=== PATIENT | female | born 1985 | race American Indian/Alaskan Native ===

== ENCOUNTER 2019-03-08 19:45 | Emergency (ER) | payer BC ==
[2019-03-08] MEDS ORDERED: AMOXICILLIN/K CLAV 875/125MG TAB PO STA (20:40)
[2019-03-08] MEDS ORDERED: oxyCODONE /ACETAMINOPHEN 5-325MG TAB PO STA (20:40)
[2019-03-08] MEDS ORDERED: TETANUS,DIPH,PERTUSS(ACELL) VACCINE 0.5 ML SYRINGE IM ONE (20:40)
--- NOTE | 2019-03-08 20:40 | Emergency Department Report ---
Blank Doc - Documentation Documentation: 33 y/o female s/p dog bite to right lower leg by stray dog. worried about rabi es. Dog was not located but animal control was dispatched T. his initial assessment/diagnostic orders/clinical plan/treatment(s) is/are subject to change based on patient's health status, clinical progression and re- assessment by fellow clinical providers in the ED. Further treatment and workup at subsequent clinical providers discretion. Patient/guardians urged not to elope from the ED as their condition may be serious if not clinically assessed and managed. Initial orders include: Tetanus, antibotics, tetanus, clean wound
--- NOTE | 2019-03-08 21:42 | XRay Report ---
LEFT TIBIA-FIBULA 2 VIEW(S) INDICATION / CLINICAL INFORMATION: dog bite. leg pain COMPARISON: None available. FINDINGS: BONES / JOINT(S): No acute fracture or subluxation. No significant arthritis. SOFT TISSUES: Soft tissue irregularity of the posterior medial left calf with several foci of soft ti ssue gas. No radiopaque foreign body. Several small calcified phleboliths in the lower anterior hassan. ADDITIONAL FINDINGS: None. Signer Name: Joseph Juarez MD Signed: 03/08/2019 9:37 PM Workstation Name: [id number]
[2019-03-08] MEDS ORDERED: SODIUM CHLORIDE IRRI 500 ML 500 ML IR ONE (21:52)
--- NOTE | 2019-03-08 23:05 | Emergency Department Report ---
ED Animal Bite HPI - General Chief Complaint: Animal Bite Stated Complaint: DOG BITE/PUNCTURE/LAC Time Seen by Provider: 03/08/19 20:37 Source: patient Mode of arrival: Ambulatory Limitations: No Limitations - History of Present Illness Initial Comments: Reports dog bite today onto right calf at approximately 1700. Denies other injuries. Denies drugs/alcohol. Complaint: animal bite -: hour(s) Right: Leg (right calf) Animal: dog Description: unknown animal Mechanism: bite Pain Description: sharp Severity scale (0 -10): 3 Context: unprovoked Associated Symptoms: none - Related Data Patient Tetanus UTD: No Previous Rx's Medication Instructions Recorded Last Taken Type Amoxicillin/Potassium Clav 1 each PO BID #20 tablet 03/08/19 Unknown Rx [Augmentin 875-125 Tablet] Ibuprofen [Motrin 600 MG tab] 600 mg PO Q6H PRN #24 tablet 03/08/19 Unknown Rx Allergies Allergy/AdvReac Type Severity Reaction Status Date / Time No Known Allergies Allergy Verified 03/08/19 22:16 ED Review of Systems ROS: Stated complaint: DOG BITE/PUNCTURE/LAC Other details as noted in HPI Other: GENERAL: No weight change, fatigue, fever, chills, or night sweats SKIN: No changes in skin or hair, no itching, no rashes, no jaundice HEAD: No trauma, headache, or visual changes EYES: No blurriness, tearing, itching, acute visual loss, conjunctival discolora tion, or scleral icterus EARS: No hearing loss, tinnitus, vertigo, or earache NOSE: No rhinorrhea, stuffiness, sneezing, itching, or epistaxis MOUTH: No bleeding gums, hoarseness, sore throat, or swelling CARDIAC: No new murmur, chest pain, palpitations, dyspnea on exertion, orthopnea, PND, or edema RESPIRATORY: No shortness of breath, wheeze, cough, sputum production, hemoptysis, pneumonia, asthma, bronchitis, or emphysema GI: No change in appetite, nausea, vomiting, dysphagia, diarrhea, constipation, hematemesis, melena, hematochezia, or abdominal pain URINARY: No frequency, urgency, polyuria, dysuria, hematuria, or incontinence MUSCULOSKELETAL: Right calf dog bite. No muscle weakness, joint stiffness, decrease in range of motion, swelling NEUROLOGIC: No headache, syncope, loss of sensation, numbness, tingling, tremors, weakness, paralysis, seizures HEMATOLOGIC: No anemia, easy bruising, bleeding, petechiae, or purpura ENDOCRINE: No hot or cold intolerance, sweating, polyuria, polydipsia or, polyphagia no thyroid problems PSYCHIATRIC: No change in mood, no anxiety, no depression ED Past Medical Hx - Past Medical History Previous Medical History?: No - Surgical History Past Surgical History?: Yes Hx Cholecystectomy: Yes - Social History Smoking Status: Current Every Day Smoker Substance Use Type: None - Medications Home Medications: Home Medications Medication Instructions Recorded Confirmed Last Taken Type Amoxicillin/Potassium Clav 1 each PO BID #20 tablet 03/08/19 Unknown Rx [Augmentin 875-125 Tablet] Ibuprofen [Motrin 600 MG tab] 600 mg PO Q6H PRN #24 tablet 03/08/19 Unknown Rx ED Physical Exam - General Limitations: No Limitations - Other Other exam information: GENERAL: Patient in no acute distress HEAD: Normocephalic, atraumatic EYES: PERRLA, EOM intact, no scleral icterus, no conjunctival hemorrhage, visual sinclair and acuity wnl NOSE: No tenderness, discharge, sinus tenderness MOUTH: No erythema, bleeding, exudate HEART: pulses are symmetric LUNGS: No respiratory distress. MUSCULOSKELETAL: Right mid-calf wound approximately 3-4 cm. Subcutaneous fat visible in some area. No tendon or muscle visible. No active bleeding, no drainage. Mild tenderness. Normal joint range of motion, no redness, no swelling NEUROLOGIC: GCS 15, Alert and Oriented x3, Cranial nerves intact, normal sensation, normal strength, no cerebellar deficit, NIHSS 0 SKIN: Skin is warm and dry ED Course - Reevaluation(s) Reevaluation #1: 03/08/19 23:05 Patient comfortable. Reports symptom improvement. Updated with results. Updated because animal bite considered a dirty wound, plan allow healing via secondary intention. Patient agrees to monitor wound and strict return precautions for worsening erythema, pus drainage, worsening pain, fever. Plan discharge with outpatient follow up. Return if any worsening. 03/08/19 23:05 Critical care attestation.: If time is entered above; I have spent that time in minutes in the direct care of this critically ill patient, excluding procedure time. ED Disposition Clinical Impression: Dog bite Qualifiers: Encounter type: initial encounter Qualified Code(s): W54.0XXA - Bitten by dog, initial encounter Disposition: - TO HOME OR SELFCARE Is pt being admited?: No Instructions: Animal Bite (ED) Prescriptions: Amoxicillin/Potassium Clav [Augmentin 875-125 Tablet] 1 each PO BID #20 tablet Ibuprofen [Motrin 600 MG tab] 600 mg PO Q6H PRN #24 tablet PRN Reason: Pain Referrals: WILL OJEDA DO [Staff Physician] - 2-3 Days Time of Disposition: 23:08
[2019-03-08] MEDS ORDERED: KETOROLAC 30 MG/1 ML INJ IV ONE (23:08)
[2019-03-08] MEDS ORDERED: BACITRACIN/POLYMYXIN B OINT 28.35 GM TP ONE (23:09)
[2019-03-09] MEDS ORDERED: TETANUS,DIPH,PERTUSS(ACELL) VACCINE 0.5 ML SYRINGE IM ONE (00:07)
[2019-03-09 00:16] VITALS: BP 100/69
== END 2019-03-09 00:24 | disposition home or self-care (01) ==
LOC: ED 19:45
DX: S81.851A Open bite, right lower leg, initial encounter (principal); F17.200 Nicotine dependence, unspecified, uncomplicated; W54.0XXA Bitten by dog, initial encounter; Y93.89 Activity, other specified; Y92.89 Other specified places as the place of occurrence of the external cause; Y99.8 Other external cause status
CPT/HCPCS: 73590; 90471; 90715; 96374; 99283; J1885